=== PATIENT | male | born 1980 | race Caucasian/White ===

== ENCOUNTER 2023-10-08 04:46 | Emergency (ER) | payer MEDICARE, OTHER, SELFPAY ==
[2023-10-08 04:52] VITALS: BP 135/75
[2023-10-08 05:16] LABS: Hematocrit 40.4 % (39.0-52.0); Hemoglobin 15.2 g/dL (13.0-18.0); Mean Corp Hgb Conc. 37.6 g/dL (33.0-37.0); Mean Corpuscular Hgb 31.7 pg (27.0-31.0); Mean Corpuscular Volume 84.2 fL (80.0-94.0); Mean Platelet Volume 8.8 fL (7.4-10.4); Platelet Count 411 10^3/uL (130-400); Red Cell Dist. Width 11.9 % (11.5-14.5); White Blood Cell Count 7.7 10^3/uL (4.8-10.8)
[2023-10-08 05:39] LABS: Blood Urea Nitrogen 11 mg/dl (9-20); Calcium 9.8 mg/dl (8.4-10.2); Carbon Dioxide 29 mmol/L (22-30); Chloride 102 mmol/L (98-107); Glucose 110 mg/dl (70-99); Lipase 54 U/L (23-300); Potassium 4.2 mmol/L (3.5-5.1); Sodium 138 mmol/L (135-145); eGFR > 60.00
[2023-10-08] MEDS: ZOFRAN 4 MG IV (06:07)
--- NOTE | 2023-10-08 06:09 | ED.GENMED ---
History of Present Illness
General
Chief Complaint: Abdominal Pain
Source: patient
Exam Limitations: none
Time Seen by Provider: 10/08/23 05:35
Nursing documentation reviewed up to this point in time: agreed with
Travel History
Have you had any contact with someone who has COVID-19?: No
Do you have any symptoms of coronavirus? Fever > 100 degrees, chills, cough, shortness of breath, sore throat, loss of taste or smell, muscle aches, or headache?: No
History of Present Illness
History of Present Illness:
42-year-old male with past medical history of distant opiate abuse who presents to the emergency room for evaluation of abdominal pain. Patient reports pain located right lower quadrant; started rather abruptly while sleeping, sharp nonradiating.
Started around 3:30 AM while he was sleeping he says woke him up from sleep. Called EMS to bring him to the hospital; shortly before EMS arrived he says he had an episode of vomiting and his pain improved. Still has some mild pain. Mild nausea.
Was in his normal state of health before bed no recent fevers, chills. No urinary symptoms. No diarrhea or constipation. He does have a prior history of kidney stones. No prior abdominal surgeries.
Past History
Past History
ED Past Medical History: Asthma, Other (PVCs, previous long QT, anemia, GERD, asthma) and Other (anemia)
Patient has exhibited threatening behavior?: No
Social History
Tobacco: Other (He currently vapes nicotine)
Alcohol: None
Drug: Former user
Family History
Family History: Diabetes and CAD
Review of Systems
Review of Systems
All Other Systems: ROS reviewed and negative except as documented in HPI and ROS
Constitutional: Denies fever or chills
EENT: Denies sore throat
Respiratory: Denies cough or trouble breathing
Cardiac: Denies chest pain or palpitations
ABD/GI: Reports abdominal pain, nausea and vomiting; Denies diarrhea
: Denies flank pain
Musculoskeletal: Denies neck pain or back pain
Neurological: Denies headache, weakness or numbness
Phy Exam
Physical Exam
Physical Exam:
General: Awake, alert; no acute distress
Head: Normocephalic, atraumatic
Eyes: Conjunctiva normal, sclera anicteric
Throat: Airway intact, handling secretions
Neck: Trachea midline, supple without meningismus
Lungs: Clear to auscultation bilaterally, no wheezing, rales, rhonchi
Heart: Regular rate and rhythm, no murmurs, gallops, or rubs
Abd: Soft, non distended, nontender to deep palpation
Back: No CVA tenderness
Neuro: Cranial nerves grossly intact, speech fluid
Skin: no rash
Extremities: Warm well-perfused
Scores
Heart Failure Risk
Heart Failure Risk Score: Not Applicable
Heart Score for Chest Pain Patients
STEMI patient?: Not applicable
Withdrawal Assessment of Alcohol
Withdrawal Assessment Completed?: Not applicable
Course
Orders/Labs/Results
Orders:
Orders
10/08/23 04:59
Complete Blood Count/No Diff Urgent
Comprehensive Metabolic Panel Urgent
Comment: ADD ON LFT
Direct Bilirubin Urgent
Comment: ADD ON LFT
Lipase Urgent
10/08/23 05:38
CT Abd/pelvis W Iv Cont Urgent
Comment:
Reason For Exam: RLQ abd pain, N/V
Ondansetron Injectable [Zofran] 4 mg IV NOW STA
10/08/23 07:34
Add On- LAB Urgent
Tests Added?: LFTs
Abnormal Lab Results
10/08/23
04:59
MCH 31.7 H pg
(27.0-31.0)
MCHC 37.6 H g/dL
(33.0-37.0)
Plt Count 411 H 10^3/uL
(130-400)
Glucose 110 H mg/dl
(70-99)
Direct Bilirubin 0.5 H mg/dl
(0.0-0.4)
10/08/23 04:59
10/08/23 04:59
Vital Signs
Initial and Last Documented VS:
Initial Vital Signs
Temp Pulse Resp BP Pulse Ox
36.5 C 50 18 135/75 100
10/08/23 04:52 10/08/23 04:52 10/08/23 04:52 10/08/23 04:52 10/08/23 04:52
Last Documented Vital Signs
Temp Pulse Resp BP Pulse Ox
36.5 C 50 18 135/75 100
10/08/23 04:52 10/08/23 04:52 10/08/23 04:52 10/08/23 04:52 10/08/23 04:52
MDM/Problems Addressed
Differential Diagnosis Includes:
Cholecystitis, cholelithiasis, appendicitis, nephrolithiasis, enteritis
MDM/Problems Addressed:
42-year-old male presents for evaluation of right lower quadrant abdominal pain that started rather abruptly while was sleeping; associate with nausea and vomiting in fact his pain improved essential to the point of resolution after he vomited. He
has marginal pain here he says. His vital signs are normal. His exam is as above. Plan to place an IV check labs including a CBC and a CMP, lipase. Will check CT of the abdomen pelvis. Will treat with some fluids and antiemetic. Monitor
closely reassess after the above.
Labs reviewed: CBC unremarkable, CMP no clinically significant abnormalities. Lipase normal. CT of the abdomen pelvis shows normal-appearing appendix, questionable enteritis. Patient no pain on reassessment, reassuring vitals, no additional
vomiting. I think he is stable for discharge will prescribe Zofran as needed. Spoke to him about return precautions and all questions answered.
*Radiology
Radiology exam reviewed: radiology read reviewed
*Pulse Oximetry
Patient hypoxic: no
*Critical Care Note
Total Time (30-74mins, 75-104mins- exclusive of procedures): Not Applicable
Data Reviewed
Source: patient and ambulance crew
ED Attending Note
-
Portions of this chart may have been created with voice recognition software.� Occasional wrong word or��sound alike� substitutions may have occurred due to the inherent limitations of voice recognition software.
Discharge Plan
Departure
Patient Disposition: Home (Routine Discharge)
Date of Disposition: 10/08/23
Time of Disposition: 08:00
Patient with high blood pressure during this ER visit?: No
Discharge Problem:
Enteritis
Instructions: Viral Gastroenteritis, Adult (DC)
Prescriptions:
New
ondansetron 4 mg tablet,disintegrating
4 mg PO TIDPRN PRN (Reason: nausea/vomiting) Qty: 14 0RF
No Action
methadone [Methadose] 100 MG/10 ML concentrate
205 mg PO DAILY
Referrals:
UNKNOWN - PT DOES,NOT KNOW [Family Provider] -
Activity Restrictions/Additional Instructions:
Thank you for visiting the Emergency Department at [facility].
1. Please schedule a follow up appointment as directed. Call first thing tomorrow morning to make an appointment.
2. If indicated, please take your medications as instructed and indicated on discharge paperwork.
3. If any of your symptoms do not improve, or persist, or become more severe within 6-12 hours, please return to the emergency department for further care.
4. Please return to the emergency department if you develop a headache, neck pain/stiffness, fever greater than 100.4F, chest pain, shortness of breath, persistent nausea, vomiting, slurred speech, difficulty walking, numbness/tingling, weakness,
signs of infection or any other symptoms that are worrisome to you.
Please call [phone] if you have any questions.
Interventions
Interventions:
*Risk Screen - Suicide Last Done: 10/08/23 04:52
*General Assessment Last Done: 10/08/23 06:01
*Neglect/Abuse Screening Last Done: 10/08/23 04:52
ED- Fall Risk Assessment Last Done: 10/08/23 08:20
*ED COVID-19 Vaccine History Last Done: 10/08/23 06:01
*Nursing Disposition Last Done: 10/08/23 08:20
WJ-Qggavg-Surovpsvzf Assessment Last Done: 10/08/23 06:01
Discharge Date and Time
Discharge Date/Time: 10/08/23 08:21
[2023-10-08 07:59] LABS: ALT (SGPT) 16 U/L (0-50); AST (SGOT) 27 U/L (17-59); Albumin 4.7 g/dl (3.5-5.0); Alkaline Phosphatase 66 U/L (38-126); Direct Bilirubin 0.5 mg/dl (0.0-0.4); Total Bilirubin 1.2 mg/dl (0.2-1.3); Total Protein 7.2 g/dl (6.3-8.2)
== END 2023-10-08 08:21 | disposition home or self-care (01) ==
LOC: EMR 04:46
PROVIDERS: Emergency Medicine; EMERGENCY PHYSICIAN Emergency Medicine
DX: K52.9 Noninfective gastroenteritis and colitis, unspecified (principal); F11.10 Opioid abuse, uncomplicated; J45.909 Unspecified asthma, uncomplicated; I49.3 Ventricular premature depolarization; D64.9 Anemia, unspecified; K21.9 Gastro-esophageal reflux disease without esophagitis; Z82.49 Family history of ischemic heart disease and other diseases of the circulatory system
CPT/HCPCS: 99284; 96374; 74177; 80053; 82248; 83690; 85027; Q9967

== ENCOUNTER 2024-05-19 19:09 | Emergency (ER) | payer MEDICARE, OTHER, SELFPAY ==
[2024-05-19 19:11] VITALS: BP 122/84
[2024-05-19 19:38] LABS: % Basophils 0.4 % (0-2); % Eosinophils 0.2 % (0-6); % Immature Granulocytes 0.3 % (0-0.5); % Lymphocytes 10.2 % (20.5-51.1); % Monocytes 9.2 % (1.7-9.3); % Neutrophils 79.7 % (42.2-75.2); Absolute Monocytes 0.9 10^3/uL (0.1-0.6); Hemoglobin 16.1 g/dL (13.0-18.0); Mean Corp Hgb Conc. 37.4 g/dL (33.0-37.0); Mean Corpuscular Hgb 31.5 pg (27.0-31.0); Mean Corpuscular Volume 84.1 fL (80.0-94.0); Mean Platelet Volume 8.8 fL (7.4-10.4); Nucleated Red Blood Cells % 0 % (-); Platelet Count 334 10^3/uL (130-400); Red Blood Cell Count 5.11 10^6/uL (4.70-6.10); Red Cell Dist. Width 12.4 % (11.5-14.5); White Blood Cell Count 10.1 10^3/uL (4.8-10.8)
[2024-05-19 19:42] LABS: Lactic Acid 2.3 mmol/L (0.7-2.0)
[2024-05-19 19:43] LABS: ALT (SGPT) 37 U/L (0-50); AST (SGOT) 45 U/L (17-59); Alkaline Phosphatase 83 U/L (38-126); Blood Urea Nitrogen 11 mg/dl (9-20); Calcium 9.7 mg/dl (8.4-10.2); Carbon Dioxide 28 mmol/L (22-30); Chloride 98 mmol/L (98-107); Glucose 86 mg/dl (70-99); Potassium 4.6 mmol/L (3.5-5.1); Sodium 141 mmol/L (135-145); Total Protein 7.7 g/dl (6.3-8.2); eGFR > 60.00
[2024-05-19 20:10] VITALS: BMI 15.4
[2024-05-19 20:18] VITALS: BP 132/77
[2024-05-19] MEDS: NSS 1000 IV (20:55)
[2024-05-19] MEDS: TYLENOL 1000 MG PO (20:55)
[2024-05-19 21:00] VITALS: BP 120/75
--- NOTE | 2024-05-19 21:02 | ED.GENMED ---
History of Present Illness
General
Chief Complaint: Fever
Time Seen by Provider: 05/19/24 20:16
History of Present Illness
History of Present Illness:
43-year-old male without significant past medical history presenting for fever and rash. Patient reports that 3 days ago he was paddle [place]. He felt fine that day, believes he was bit by mosquito, and then later in the day started to
develop sore throat and fever. This morning, noticed a rash on his trunk and chest, extending down to his groin and his face. Denies any rash to the extremities. The rash is not painful. Denies any known sick contacts. He took Tylenol this
morning. Denies some nausea without vomiting. Reports some loose stools. Denies chest pain or difficulty breathing. Denies any recent travel out of the country. Denies additional acute medical complaints
Past History
Past History
ED Past Medical History: Asthma, Other (PVCs, previous long QT, anemia, GERD, asthma) and Other (anemia)
Patient has exhibited threatening behavior?: No
Social History
Tobacco: Other (He currently vapes nicotine)
Alcohol: None
Drug: Former user
Family History
Family History: Diabetes and CAD
Phy Exam
Physical Exam
Physical Exam:
General: Well-appearing, no clinical signs of dehydration, nontoxic and in no acute distress
HEENT: protecting airway, generalized erythema to the throat. No oropharyngeal swelling. Dryness to the tongue and lips
Neck: appears supple
CV: Normal heart rate, regular rhythm, no evidence of cyanosis
Resp: No accessory muscle use, no increased work of breathing, lungs clear to auscultation bilaterally
Abd: Soft and non-distended, no tenderness to palpation
Extremities: No deformities, no swelling, no erythema
Neuro: alert, no focal neurologic deficit
: deferred
Rectal: deferred
Psych: Normal affect
Skin: Red sunburn like rash, sandpaper feel, concentrated to the chest and abdomen, extending to the groin and axilla as well as the face and neck. No significant involvement to the extremities
Sepsis
Sepsis Screening
Sepsis Assessment: Sepsis Ruled Out
Sepsis Screen
Sepsis Screen: Sepsis Ruled Out
Date: 05/19/24
Time: 23:29
Course
Orders/Labs/Results
Orders:
Orders
05/19/24 19:23
Complete Blood Count/With Diff Urgent
Comprehensive Metabolic Panel Urgent
Lactic Acid Q4H
Comment: ON ICE, CANCEL 2ND ORDER IF FIRST LACTIC ACID LEVEL <2
Lactic Acid Q4H
Comment: ON ICE, CANCEL 2ND ORDER IF FIRST LACTIC ACID LEVEL <2
05/19/24 20:35
0.9% Sodium Chloride 1000 ml [Nss] 1,000 ml IV BOLUS
05/19/24 20:36
Acetaminophen [Tylenol] 1,000 mg PO NOW STA
05/19/24 21:01
COVID-19 Antigen Urgent
Source: Nasal Swab
Monotest Urgent
Rapid Strep Group A Urgent
GELY Source: Throat/Pharynx
Specimen Description:
Date Specimen was Collected: 05/19/24
Time Specimen was Collected: 20:49
05/19/24 21:03
Ondansetron Injectable [Zofran] 4 mg IV NOW STA
05/19/24 22:19
Lactic Acid Urgent
05/19/24 23:05
Amoxicillin [Amoxil] 500 mg PO NOW STA
Abnormal Lab Results
05/19/24 05/19/24
19:23 21:01
MCH 31.5 H pg
(27.0-31.0)
MCHC 37.4 H g/dL
(33.0-37.0)
Absolute Neuts (auto) 8.0 H 10^3/uL
(1.4-6.5)
Absolute Lymphs (auto) 1.0 L 10^3/uL
(1.2-3.4)
Absolute Monos (auto) 0.9 H 10^3/uL
(0.1-0.6)
Neutrophils % 79.7 H %
(42.2-75.2)
Lymphocytes % 10.2 L %
(20.5-51.1)
Lactic Acid 2.3 H mmol/L
(0.7-2.0)
SARS-CoV-2 Antigen Positive A
(Negative)
05/19/24 19:23
05/19/24 19:23
Vital Signs
Initial and Last Documented VS:
Initial Vital Signs
Temp Pulse Resp BP Pulse Ox
101.4 F H 83 18 122/84 95
05/19/24 19:11 05/19/24 19:11 05/19/24 19:11 05/19/24 19:11 05/19/24 19:11
Last Documented Vital Signs
Temp Pulse Resp BP Pulse Ox
98.6 F 75 14 120/75 98
05/19/24 22:21 05/19/24 21:00 05/19/24 21:00 05/19/24 21:00 05/19/24 21:00
MDM/Problems Addressed
MDM/Problems Addressed:
43-year-old male with no significant past medical history presenting for fever and rash. Vital signs on arrival significant for fever.
On exam, patient is overall nontoxic, however does have significant rash. Rash looks consistent with scarlet fever reaction, particularly given appearance and distribution. Patient does note some soreness to the throat with erythema to the throat.
Will swab for strep throat. Will also obtain Monospot testing. Will obtain COVID. Lower suspicion for mosquito borne illness. Laboratory analysis obtained prior to my assessment, no significant leukocytosis, mild elevation of lactic acid,
suspected from dehydration rather than sepsis. Will start patient on IV fluids. Will continue to closely monitor
22:00 - Patient's COVID is positive, negative strep test. Lactic acid slightly elevated again, suspicious for dehydration, no leukocytosis. Will repeat after IV fluids.
23:00 - Patient's lactate is cleared after IV fluids and temperature has improved with Tylenol. Feel stable for discharge with continued outpatient supportive therapy. However, strong suspicion for strep pharyngitis given rash distribution,
possible false negative. For this reason, will start patient antibiotics. Advised continued fever control with Tylenol and Motrin. Return precautions discussed and patient verbalized understanding
*Critical Care Note
Total Time (30-74mins, 75-104mins- exclusive of procedures): Not Applicable
ED Attending Note
-
Portions of this chart may have been created with voice recognition software.� Occasional wrong word or��sound alike� substitutions may have occurred due to the inherent limitations of voice recognition software.
Discharge Plan
Departure
Patient Disposition: Home (Routine Discharge)
Date of Disposition: 05/19/24
Time of Disposition: 23:06
Patient with high blood pressure during this ER visit?: No
Condition: Good
Discharge Problem:
COVID-19, Viral exanthem, Dehydration, mild
Instructions: Fever, Adult (DC), Viral Syndrome (DC), Coronavirus Home Quarantine
Prescriptions:
New
amoxicillin 500 mg capsule
500 mg PO BID 10 Days Qty: 20 0RF
No Action
methadone [Methadose] 100 MG/10 ML concentrate
205 mg PO DAILY
ondansetron 4 mg tablet,disintegrating
4 mg PO TIDPRN PRN (Reason: nausea/vomiting) Qty: 14 0RF
Referrals:
Charles Duffy MD [Family Provider] -
Activity Restrictions/Additional Instructions:
You were seen in the emergency department for fever and rash
You were found to have COVID-19
Please follow-up closely with your primary care physician.
Return to the emergency department for any worsening of your symptoms, or any development of chest pain, difficulty breathing, abdominal pain with persistent vomiting and inability to tolerate food or liquid by mouth (concern for dehydration),
weakness, headache or confusion, fever greater than 100.4, or any additional symptoms that are concerning to you.
Thank you for choosing [facility].
Interventions
Interventions:
*Risk Screen - Suicide Last Done: 05/19/24 19:11
*General Assessment Last Done: 05/19/24 19:11
*Neglect/Abuse Screening Last Done: 05/19/24 20:10
ED- Fall Risk Assessment Last Done: 05/19/24 20:10
*ED COVID-19 Vaccine History Last Done: 05/19/24 20:10
*Nursing Disposition Last Done: 05/19/24 23:26
ED- Neurological Assessment Last Done: 05/19/24 20:10
ED-Skin Assessment Last Done: 05/19/24 20:10
Discharge Date and Time
Discharge Date/Time: 05/19/24 23:26
Print Language: LATVIAN
[2024-05-19] MEDS: ZOFRAN 4 MG IV (21:05)
[2024-05-19 21:19] LABS: Monotest Negative (Negative)
[2024-05-19 21:20] LABS: COVID-19 Antigen Positive (Negative)
--- NOTE | 2024-05-19 21:43 | EDRN ---
Updated patient on results, friend at bedside, call unger in reach.
[2024-05-19 22:35] LABS: Lactic Acid 0.7 mmol/L (0.7-2.0)
[2024-05-19] MEDS: AMOXIL 500 MG PO (23:19)
== END 2024-05-19 23:26 | disposition home or self-care (01) ==
LOC: EMR 19:09
PROVIDERS: Emergency Medicine; EMERGENCY PHYSICIAN Student in an Organized Health Care Education/Training Program; FAMILY PHYSICIAN Internal Medicine
DX: U07.1 COVID-19 (principal); B09 Unspecified viral infection characterized by skin and mucous membrane lesions; E86.0 Dehydration; R19.7 Diarrhea, unspecified; Z11.52 Encounter for screening for COVID-19; J45.909 Unspecified asthma, uncomplicated; K21.9 Gastro-esophageal reflux disease without esophagitis; D64.9 Anemia, unspecified; F17.290 Nicotine dependence, other tobacco product, uncomplicated; Z91.018 Allergy to other foods
CPT/HCPCS: 99284; 96374; 96361; 80053; 83605; 85025; 86308; 87070; 87811; 87880